=== PATIENT | male | born 1980 | race Caucasian/White ===

== ENCOUNTER 2016-12-16 02:01 | Emergency (ER) | payer SELFPAY ==
[~2016-12-16] VITALS: Ht 170.2 cm; Wt 79.1 kg
--- OUTSIDE RECORDS SUMMARY | 2016-12-16 02:05 | XMS REPORT | Continuity of Care Document ---
Author Author [facility] Organization [facility] Address [address] [place] [address] ;ext= Care Team Providers Care Cane Flume Watcher Name Role Phone Marlene CABRERA Admitting Physician [phone] Marlene CABRERA Attending Physician [phone] Hospital Admission Diagnosis * No data in the System Social History Element Description Code Description Smoking Status Code System Start Date End Date Smoking Status [id number] Unknown if ever smoked SNOMED-CT Problems Code Code System Problem Name Start Date End Date Status DENTAL PAIN AND ABDOMINAL CRAMPS 10/29/[address] Description [id number] Patient Not On Self-Medication Allergies * No Known Allergies Results * No data in the system Vital Signs Vitals Value Date Body Temperature 97.2 F 10/29/2016 Respiratory Rate 17 10/29/2016 O2% BldC Oximetry 97 10/29/2016 BP Systolic 125 mmHg 10/29/2016 BP Diastolic 80 mmHg 10/29/2016 Weight Measured 170 lbs 10/29/2016 Plan of Care * No data in the system Procedures Code Code System Procedure Name Target Site Date of Procedure LEFT SHOULDER 08/26/2012 Encounters * No data in the system Immunizations Vaccine Code Code System Vaccine Name Date Status UTD Completed Functional Status * No data in the system Hospital Discharge Instructions * No data in the system
--- OUTSIDE RECORDS SUMMARY | 2016-12-16 02:06 | XMS REPORT | Continuity of Care Document ---
Author Author [facility] Organization [facility] Address Unknown Phone Unavailable Allergies Active Description Code Type Severity Reaction Onset Reported/Identified Relationship to Patient Clinical Status Yes No Known Allergies [id number] Unknown N/A 10/29/2016 Medications Problems Date Dx Coded Attending Type Code Diagnosis Diagnosed By 11/13/2016 Veda CABRERA F17.210 NICOTINE DEPENDENCE, CIGARETTES, UNCOMPLICATED 11/13/2016 Veda CABRERA S K04.7 PERIAPICAL ABSCESS WITHOUT SINUS 11/13/2016 Veda CABRERA P R10.84 GENERALIZED ABDOMINAL PAIN Procedures Results Encounters ACCT No. Visit Date/Time Discharge Status Pt. Type Provider Facility Loc./Unit Complaint [id number] 10/29/2016 02:00:00 ACT Unknown Veda CABRERA [facility] NSER DENTAL / GUM PROBLEM
[2016-12-16 02:13] VITALS: Ht 170.2 cm; Wt 79.1 kg
[2016-12-16] MEDS ORDERED: CEPHALEXIN 500 MG CAPSULE PO ONE (02:30)
--- NOTE | 2016-12-16 02:34 | ERPDOC ---
Departure Disposition Decision Date: Dec 16, 2016 Disposition Decision Time: 02:58 Disposition: 01 DISCHARGED HOME, SELF-CARE Impression Impression Impression: Primary Impression: Severe dental caries Severity: Severe Condition: Improved Seen By: Physician only Patient Instructions: Dental Caries (ED) Problems/Meds/Labs Reviewed?: Yes Medications reviewed and manag: Yes Additional Instructions: Keflex 500 mg 3 times daily for 10 days Ibuprofen 400 mg every 4-6 hours as needed for pain Follow up care ordered?: Yes Mental Status: Alert, Oriented Scripts Cephalexin (Keflex) 500 Mg Capsule 500 MG PO TID, #30 CAP Prov: LEIGH NUNEZ MD 12/16/16 HPI General Chief Complaint: Toothache Stated Complaint: TOOTH PAIN Time Seen by Provider: 02:29 Source: patient Exam Limitations: no limitations HPI Dental Initial Comments Dental pain for 2 days at the right upper and lower incisors, or sweats left of them. 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 Often gets dental infections, and was last seen one and a half months ago at [facility] for the same thing. Patient states that after to get a box for several days his pain was significantly improved at that time. Currently patient is in, is allowed to have narcotics, and is not getting adequate pain control with ibuprofen. Occurred At: home Onset: Gradual Severity: moderate, severe Location: R upper, R lower 1 - Severe dental decay, dental tenderness without swelling in the surrounding tissue 2 - Severe dental decay with dental tenderness, no swelling in the surrounding tissue Allergies: Coded Allergies: No Known Allergies (Unverified , 12/16/16) Past History Past Medical History ENMT: dental problems Psychological: bipolar, depression, drug abuse Surgical History Denies Surgeries Social History Smoking Status: Current every day smoker Does patient use chewing tobac: No Second Hand Exposure: No Substance Use Type: former substance user, marijuana, amphetamines, methamphetamine Alcohol Intake: none Record Review Pertinent history updated: Yes Review of Systems Constitutional Constitutional: DENIES: appetite decrease, appetite increase, chills, dizziness , fever, weakness ENMT Ears: DENIES: pain Hearing: DENIES: hearing loss, tinnitus Balance: DENIES: vertigo Mouth/Throat: DENIES: change in swallowing, change in voice, hoarsness, painful swallowing, sore throat Teeth: pain Cardiovascular Cardiac: DENIES: chest pain, dyspnea on exertion Rhythm/Rate: DENIES: irregular beat, palpitations, tachycardia Vascular: DENIES: pedal edema Pulmonary Respiratory: DENIES: cough, dyspnea, pleuritic chest pain GI Upper Abdomen: DENIES: dysphagia, heartburn/indigestion, nausea, pain, vomiting Lower Abdomen: DENIES: blood in stool, constipation, diarrhea, pain General: DENIES: burning, dysuria, frequency, pain, urgency Musculoskeletal General: DENIES: cramps, joint pain, joint swelling, pain, weakness Integumentary Skin: DENIES: rash, sores Neurological General: DENIES: headache, numbness, tingling, vertigo, weakness Psychiatric Psychiatric: DENIES: anxiety, depression, nervousness Exam General General Nourishment: well nourished, well developed, appears stated age, no acute distress General Body Habitus: disheveled Vital Signs: RN Vital Signs have been reviewed: Yes [facility] Comments Patient has full reflexes dental decay secondary to methamphetamine abuse. Patient does have mild to moderate tenderness over the right upper and lower incisor, or what is left of them. No swelling or redness of the surrounding tissue. Neurologic RN Documented GCS Eye Opening: Verbal: Motor: Total: Procedures Procedures Performed Procedures Performed: Dental Block Dental Block Procedure Dental Block : Pain Scale Pre: 10 Location: sub-mandibular, infra-orbital Method: internal approach Anesthetic: 0.5% Bupivicaine (with Epi) Volume of Anesthetic (cc's): 3.6 Pain Scale Post: 0 Progress Results/Orders Orders Procedure Category Date Status Time Cephalexin Capsule PHA 12/16/16 Complete (Keflex) 02:30 Bupivacaine/Epi PHA 12/16/16 Complete *Dental* (Marcaine 02:45 Medications Current ED Medications Cephalexin HCl (Keflex) 500 mg O ONCE PO Last administered on 12/16/16 02:57 ; Start 12/16/16 at 02:30; Stop 12/16/16 at 02:31; Status DC Bupivacaine HCl/ Epinephrine Bitart (Marcaine *Dental*) 3.6 ml O ONCE INJ Last administered on 12/16/16 02:56; Start 12/16/16 at 02:45; Stop 12/16/16 at 02:46; Status DC LEIGH NUNEZ MD Dec 16, 2016 02:34
[2016-12-16] MEDS ORDERED: BUPIVACAINE 0.5%/EPI 1:200K *DENTAL* 1.8ml SYRINGE INJ ONE (02:45)
--- OUTSIDE RECORDS SUMMARY | 2016-12-16 02:51 | XMS REPORT | Continuity of Care Document ---
Author Author [facility] Organization [facility] Address Unknown Phone Unavailable Allergies Active Description Code Type Severity Reaction Onset Reported/Identified Relationship to Patient Clinical Status Yes No Known Allergies [id number] Unknown N/A 10/29/2016 Medications Problems Date Dx Coded Attending Type Code Diagnosis Diagnosed By 11/13/2016 Veda CABRERA F17.210 NICOTINE DEPENDENCE, CIGARETTES, UNCOMPLICATED 11/13/2016 Veda CABRERA S K04.7 PERIAPICAL ABSCESS WITHOUT SINUS 11/13/2016 Veda CABRERA P R10.84 GENERALIZED ABDOMINAL PAIN Procedures Results Encounters ACCT No. Visit Date/Time Discharge Status Pt. Type Provider Facility Loc./Unit Complaint [id number] 10/29/2016 02:00:00 ACT Unknown Veda CABRERA [facility] NSER DENTAL / GUM PROBLEM
--- NOTE | 2016-12-16 02:56 | NUR ---
LOCAL DENTAL BLOCK BY DR NUNEZ PT [facility]OR[facility]
--- NOTE | 2016-12-16 02:57 | NUR ---
KEFLEX PT GIVEN KEFLEX PO WITH WATER PT TAKES MED EASILY
[2016-12-16] MEDS ORDERED: CEPH-583 PO (02:59)
--- NOTE | 2016-12-16 03:00 | NUR ---
STATUS PT REPORTS HE JUST HAS MILD ACHE TO LOWER TOOTH NOW STATES HE FEELS ALOT BETTER
--- NOTE | 2016-12-16 03:12 | NUR ---
INSTRUCTIONS DISMISSAL AND MEDICATION INSTRUCTIONS GIVEN TO PT RX GIVEN FOR KEFLEX WITH INSTRUCTIONS PT VERBALIZED UNDERSTANDING OF ALL
[2016-12-16 03:14] VITALS: BP 131/88; PULSE 65; RESP 16; TEMP 97.6; O2SAT 99
--- NOTE | 2016-12-16 03:14 | NUR ---
DISMISS PT DISMISSED AMBULATORY [facility] STAFF COMING TO GET PT
[2016-12-16] MEDS ORDERED: NO ROUTINE MEDS (04:50)
== END 2016-12-16 03:14 | disposition home or self-care (01) ==
LOC: ED 02:01
DX: K02.9 Dental caries, unspecified (principal)

== ENCOUNTER 2017-01-05 03:50 | Emergency (ER) | payer SELFPAY ==
[~2017-01-05] VITALS: Ht 170.2 cm; Wt 87.2 kg
[~2017-01-05 03:50] MED LIST: CEPH-583 PO; NO ROUTINE MEDS
--- OUTSIDE RECORDS SUMMARY | 2017-01-05 03:55 | XMS REPORT | Continuity of Care Document ---
Author Author [facility] Organization [facility] Address Unknown Phone Unavailable Allergies Active Description Code Type Severity Reaction Onset Reported/Identified Relationship to Patient Clinical Status Yes No Known Allergies [id number] Unknown N/A 10/29/2016 Medications Problems Date Dx Coded Attending Type Code Diagnosis Diagnosed By 11/13/2016 Veda CABRERA F17.210 NICOTINE DEPENDENCE, CIGARETTES, UNCOMPLICATED 11/13/2016 Veda CABRERA S K04.7 PERIAPICAL ABSCESS WITHOUT SINUS 11/13/2016 Veda CABRERA P R10.84 GENERALIZED ABDOMINAL PAIN Procedures Results Encounters ACCT No. Visit Date/Time Discharge Status Pt. Type Provider Facility Loc./Unit Complaint [id number] 10/29/2016 02:00:00 ACT Unknown Vdea CABRERA [facility] NSER DENTAL / GUM PROBLEM
--- OUTSIDE RECORDS SUMMARY | 2017-01-05 03:55 | XMS REPORT | Continuity of Care Document ---
Author Author [facility] Organization [facility] Address Unknown Phone Unavailable Support Name Relationship Address Phone LEIGH NUNEZ MD Caregiver [address] [place] [address] [place] [address] Unavailable ORLANDO SALAZAR Next Of Kin [address] [place], [place] [id number] Insurance Providers Guarantor Zheng Vick Address [address] [place] [address] Email DENIED 12-16-16 Payer Self Pay Subscriber's Name Zheng Vick Relationship 18 Self Chief Complaint and Reason for Visit Chief Complaint Toothache Reason for Visit Severe dental caries Problems Past Problems Medical Problem Onset Date Severe dental caries Unknown Medications Current Home Medications Medication Dose Units Route Directions Days Qty Instructions Start Date Cephalexin (Keflex) 500 Mg Capsule 500 Mg Oral Three Times A Day 30 Capsule 12/16/16 No Routine Meds 12/16/16 Social History Social History Problem Response Recorded Date/Time Onset Date Status Chewing Tobacco Status Y RARE 12/16/2016 2:18am Not Applicable Not Applicable Hx Substance Use METH AND MARIJUANA 12/16/2016 2:18am Not Applicable Not Applicable Query Response Start Date Stop Date Smoking Status Current every day smoker Hospital Discharge Instructions No hospital discharge instructions. Plan of Care Discharge Date 12/16/16 3:14am Disposition 01 DISCHARGED HOME, SELF-CARE Condition at Discharge Improved Instructions/Education Provided Dental Caries (ED) Prescriptions See Medication Section Additional Instructions/Education Keflex 500 mg 3 times daily for 10 days Ibuprofen 400 mg every 4-6 hours as needed for pain Care Plan and Goals Physician Care Plan Problem: Dental caries with acute dental pain Goal: Follow up with primary care provider Instructions: Take medications and follow care plan as discussed/written Keflex 500 mg 3 times daily for 10 days Ibuprofen 400 mg every 4-6 hours as needed for pain Functional Status No functional status results. Allergies, Adverse Reactions, Alerts No known allergies. Immunizations No immunization records. Vital Signs Acute Vital Signs Vital Response Date/Time Temperature (Fahrenheit) 97.6 deg F (96.8 - 99.1) 12/16/2016 3:14am Temperature (Calculated Celsius) 36.52378 degrees C (36.0 - 37.3) 12/16/2016 3:14am Pulse Rate (adult) 65 bpm (60 - 100) 12/16/2016 3:14am Respiratory Rate 16 breaths/min (10 - 20) 12/16/2016 3:14am O2 Sat by Pulse Oximetry 99 % (90 - 100) 12/16/2016 3:14am Blood Pressure 131/88 mm Hg 12/16/2016 3:14am Height (Feet) 5 feet 12/16/2016 2:13am Height (Inches) 7.00 inches 12/16/2016 2:13am Weight (Kilograms) 79.100 kg 12/16/2016 2:13am Body Mass Index (BMI) 27.0 12/16/2016 2:13am Results No known relevant diagnostic tests, laboratory data and/or discharge summary. Procedures No known history of procedures. Encounters Encounter Location Arrival/Admit Date Discharge/Depart Date Attending Provider Departed Emergency Room [facility] 12/16/16 2:01am 12/16/16 3: 14am LEIGH NUNEZ MD Recent Diagnosis
[2017-01-05 04:02] VITALS: Ht 170.2 cm; Wt 87.2 kg
[2017-01-05] MEDS ORDERED: AMOX500C2 PO (04:10)
[2017-01-05] MEDS ORDERED: NAPR500T PO (04:10)
--- NOTE | 2017-01-05 04:11 | ERPDOC ---
Departure Disposition Decision Date: January 05, 2017 Disposition Decision Time: 04:09 Disposition: 01 DISCHARGED HOME, SELF-CARE Impression Impression Impression: Primary Impression: Pain, dental Severity: Moderate Condition: Improved Seen By: Physician only Referrals: [facility] 2 Days Patient Instructions: Dental Caries (ED), Toothache (ED), ED Dental Follow-up Problems/Meds/Labs Reviewed?: Yes Medications reviewed and manag: Yes Follow up care ordered?: Yes Mental Status: Alert, Oriented Scripts Naproxen (Naprosyn) 500 Mg Tablet 1 TAB PO BID Y for PAIN, #10 TAB 0 Refills Prov: RADHA INTERIANO DO 01/05/17 Amoxicillin (Amoxicillin) 500 Mg Capsule 1 CAP PO TID for 10 Days, #30 CAP 0 Refills Prov: RADHA INTERIANO DO 01/05/17 HPI - General Medical General Chief Complaint: Toothache Stated Complaint: TOOTH PAIN Time Seen by Provider: 03:59 Source: patient Exam Limitations: no limitations HPI - General Medical Initial Comments 36-year-old male presents to emergency department with a chief complaint of dental pain. Patient has been experiencing pain in one of his right upper teeth for the past "several days." Patient states that he used his hand to pull the tooth when it became loose. Pain is moderate in nature. Pain is sharp. No radiation. He notes improvement of pain with acetaminophen. Patient has an appointment with a dentist once he is released from the [facility] facility for which he is undergoing treatment for methamphetamine abuse. Patient is in agreement with the current plan of management. Patient requests no narcotic pain medication. Patient denies any other complaints or associated symptoms. Occurred At: other ([facility]) Onset: Gradual Allergies: Coded Allergies: No Known Allergies (Unverified , 12/16/16) Past History Past Medical History ENMT: dental problems Psychological: bipolar, depression, drug abuse Surgical History Denies Surgeries Family History Family History: Negative Social History Smoking Status: Current every day smoker Does patient use chewing tobac: No Second Hand Exposure: No Substance Use Type: former substance user, marijuana, amphetamines, methamphetamine Alcohol Intake: none Review of Systems Constitutional Constitutional: DENIES: chills, fever Eyes General: DENIES: erythema, exudate Lids/Accessories: DENIES: erythema, swelling Vision: DENIES: acuity, blurring ENMT Ears: DENIES: drainage, erythema Hearing: DENIES: hearing loss Balance: DENIES: ataxia, falling to one side Sinuses: DENIES: congestion, pain Nose: DENIES: nosebleeds, pain Mouth/Throat: DENIES: painful swallowing, sore throat Teeth: pain Jaw: DENIES: pain Cardiovascular Cardiac: DENIES: chest pain, dyspnea on exertion Rhythm/Rate: DENIES: irregular beat, palpitations Vascular: DENIES: pedal edema, unilateral swelling Pulmonary Respiratory: DENIES: cough, dyspnea, pleuritic chest pain, sputum GI Upper Abdomen: DENIES: nausea, pain, vomiting Lower Abdomen: DENIES: diarrhea, pain General: DENIES: dysuria, frequency, urgency Musculoskeletal General: DENIES: joint pain, tenderness Integumentary Skin: DENIES: itching, rash Neurological General: DENIES: change in strength, headache, numbness, weakness Psychiatric Psychiatric: DENIES: emotional instability, suicidal ideation/attempt Endocrine Endocrine: DENIES: polydipsia, polyphagia Hematologic/Lymphatic Hematologic/Lymphatic: DENIES: frequent nosebleeds, lymphadenopathy Allergic/Immunological Allergic/Immunoligical: DENIES: allergic reactions, hives Physical Exam General General Nourishment: well nourished, well developed, appears stated age, no acute distress, adult General Body Habitus: well groomed Vitals and Pain First Documented Vital Signs Date Time Temp Pulse Resp B/P Pulse Ox O2 Delivery O2 Flow Rate FiO2 01/05/17 04:02 97.5 64 16 126/64 100 Room Air Weight: Kilograms: Height (feet): 5 Height (inches): 7.00 Triage Pain Scale: RN VS reviewed by Provider: Yes Normal Exams: Head: Normocephalic w/o trauma Eyes: Pupils are PERRLA w/ EOMI, No scleral icterus, irritation, or foreign bodies noted ENMT: No facial trauma, nasal exudates, pharyngeal erythema, or exudates are noted Neck: Full range of motion, without adenopathy, JVD, bruits or thyromegaly Chest/Resp: Clear all [place], with good airflow, and symmetry bilaterally CV: Regular rate and rhythm, without murmur or gallop, Pulses 2+ all extremities, capillary refill, <2 seconds all ext., no pedal edema noted Abdomen: Bowel sounds positive, soft, non-tender, non-distended, no hepatosplenomegaly, masses or bruits noted Lymphatic: No lymphadenopathy, or lymphedema noted Musculoskeletal: No tenderness, or deformity noted, good range of motion, all extremities Integumentary: No rashes, hives, or bruising noted, hair and nails, without abnormality Neurologic: Patient is alert, and oriented, cranial nerves, motor/sensory/ cerebellar, exams w/o gross deficits, to observation Psychiatric: Patient exhibits, appropriate attention, emotion and affect ENMT (brief) Comments Oral - patient has widespread dental caries with severe erosion to multiple teeth. Multiple teeth are missing. Patient is having pain where tooth #5 was extracted. There is no sign of abscess. Voice is normal. Handling secretions without difficulty. No elevation of tongue. No facial swelling or cellulitis. No pharyngeal erythema. No tonsillar exudate. Uvula is midline. Differential Diagnoses Considering: Other (dental pain/dental trauma/dental caries/dental abscess) Progress Results/Orders Orders Procedure Category Date Status Time Naproxen (Naprosyn PHA 01/05/17 Complete 500mg) 04:15 Amoxicillin (Amoxil) PHA 01/05/17 Complete 04:15 Medications Current ED Medications Naproxen (NAPROSYN 500mg) 500 mg O ONCE PO Last administered on 01/05/17 04: 27; Start 01/05/17 at 04:15; Stop 01/05/17 at 04:17; Status DC Amoxicillin (Amoxil) 500 mg O ONCE PO Last administered on 01/05/17t 04:27; Start 01/05/17 at 04:15; Stop 01/05/17 at 04:17; Status DC Progress Progress Patient is given Naprosyn 500 mg by mouth 1 in the emergency department with improvement of symptoms. Patient is given amoxicillin 500 mg by mouth 1 in the emergency department. Prescriptions for Naprosyn and amoxicillin are provided. Patient is discharged home in improved condition. Patient is to follow up as instructed. Patient is to return to the emergency department if his condition worsens or changes in any manner. Patient is in agreement with the current plan of management. RADHA INTERIANO DO January 05, 2017 04:11 RADHA INTERIANO DO January 05, 2017 04:11
--- OUTSIDE RECORDS SUMMARY | 2017-01-05 04:13 | XMS REPORT | Continuity of Care Document ---
Author Author [facility] Organization [facility] Address Unknown Phone Unavailable Allergies Active Description Code Type Severity Reaction Onset Reported/Identified Relationship to Patient Clinical Status Yes No Known Allergies [id number] Unknown N/A 10/29/2016 Medications Problems Date Dx Coded Attending Type Code Diagnosis Diagnosed By 11/13/2016 Veda CABRERA F17.210 NICOTINE DEPENDENCE, CIGARETTES, UNCOMPLICATED 11/13/2016 Veda CABRERA S K04.7 PERIAPICAL ABSCESS WITHOUT SINUS 11/13/2016 Veda CABRERA P R10.84 GENERALIZED ABDOMINAL PAIN Procedures Results Encounters ACCT No. Visit Date/Time Discharge Status Pt. Type Provider Facility Loc./Unit Complaint [id number] 10/29/2016 02:00:00 ACT Unknown Veda CABRERA [facility] NSER DENTAL / GUM PROBLEM
[2017-01-05] MEDS ORDERED: AMOXICILLIN 250 MG CAPSULE PO ONE (04:15)
[2017-01-05] MEDS ORDERED: NAPROXEN 500 MG TABLET PO ONE (04:15)
[2017-01-05 04:30] VITALS: BP 126/64; PULSE 64; RESP 16; TEMP 97.5; O2SAT 100
--- NOTE | 2017-01-05 04:30 | NUR ---
DEPART PT GIVEN DI FOR DENTAL CARIES, TOOTHACHE, AMOXICILLIN, NAPROXEN, F/U. RX PROVIDED FOR NAPROXEN AND AMOXICILLIN. VERBALIZES UNDERSTANDING. QUESTIONS ASKED/ANSWERED - DENIES FURTHER QUESTIONS/NEEDS. PERSONAL BELONGINGS GATHERED. PT AMBULATED/ESCORTED TO ED EXIT. GAIT STABLE, NO SIGN OF DISTRESS.
== END 2017-01-05 04:30 | disposition home or self-care (01) ==
LOC: ED 03:50
DX: K08.89 Other specified disorders of teeth and supporting structures (principal)